=== PATIENT | female | born 1980 | race Caucasian/White ===

== ENCOUNTER → 2019-06-21 | Outpatient (CLI) | payer BC ==
--- NOTE | 2019-06-21 14:18 | Diagnostic Imaging Report ---
PROCEDURE: US Non-OB pelvis comp/trans. TECHNIQUE: Multiple realtime grayscale images were obtained of the pelvis in various projections endovaginally. Transabdominal imaging was also performed. INDICATION: Right lower quadrant pain. FINDINGS: The uterus measures 9.9 x 4.9 x 4.2 cm. Endometrium is 4 mm in thickness. No myometrial mass is detected. There are several cervical nabothian cysts. The right ovary measures 3.2 x 2.4 x 1.7 cm, and the left ovary measures 3.1 x 2.0 x 1.9 cm. There is blood flow to the ovaries. No adnexal mass or free fluid is seen. IMPRESSION: Unremarkable pelvic ultrasound. Dictated by: Dictated on workstation # [id number]
== END ==
LOC: RAD 12:58
PROVIDERS: ATTEND Obstetrics & Gynecology
DX: N83.209 Unspecified ovarian cyst, unspecified side (principal)
CPT/HCPCS: 76830; 76856

== ENCOUNTER 2019-07-20 05:55 | Outpatient (CLI) | payer BC ==
[~2019-07-20] VITALS: Ht 152 cm; Wt 79.5 kg
[2019-07-20] MEDS ORDERED: LACT1CAP74 PO (13:14)
[2019-07-20] MEDS ORDERED: NORG1TAB14 PO (13:14)
[2019-07-20] MEDS ORDERED: NAPR220C11 PO (13:14)
== END 2019-07-20 13:16 ==
LOC: PREOP 05:55
PROVIDERS: ATTEND Surgery
DX: Z01.818 Encounter for other preprocedural examination (principal)

== ENCOUNTER → 2020-01-30 | Outpatient (CLI) | payer BC, OTHER ==
[~2020-01-30] MED LIST: ACHD5005 PO; LACT1CAP74 PO; NAPR220C11 PO; NORG1TAB14 PO
--- NOTE | 2020-01-31 13:40 | Diagnostic Imaging Report ---
PROCEDURE: US Non-ob pelvis comp/trans. TECHNIQUE: Multiple Real-time grayscale images were obtained of the pelvis in various projections endovaginally. Transabdominal imaging was also performed. INDICATION: Ovarian cyst. FINDINGS: The uterus is anteverted measuring 9.1 x 4.5 x 4.6 cm. The endometrium is 3 mm in thickness. No myometrial mass is detected. The right ovary measures 2.9 x 2.1 x 2.9 cm and the left ovary measures 2.3 x 1.5 x 1.4 cm. There is blood flow to both ovaries. No adnexal mass or free fluid is detected. IMPRESSION: Unremarkable pelvic ultrasound. Dictated by: Dictated on workstation # [id number]
== END ==
LOC: RAD 12:26
PROVIDERS: ATTEND Obstetrics & Gynecology
DX: N83.209 Unspecified ovarian cyst, unspecified side (principal); Z72.0 Tobacco use
CPT/HCPCS: 76830; 76856

== ENCOUNTER → 2021-04-30 | Outpatient (CLI) | payer BC, OTHER | LOC: LABNPT 06:37 | PROVIDERS: ATTEND Emergency Medicine | DX: Z01.812 Encounter for preprocedural laboratory examination (principal); Z20.822 Contact with and (suspected) exposure to COVID-19 | CPT/HCPCS: 87635 ==

== ENCOUNTER → 2021-11-07 | Outpatient (CLI) | payer BC ==
--- NOTE | 2021-11-07 11:10 | Diagnostic Imaging Report ---
PROCEDURE: US Non-ob pelvis comp/trans. TECHNIQUE: Multiple realtime grayscale images were obtained of the pelvis in various projections endovaginally. COMPARISON: Ultrasound 01/30/2020 Transabdominal imaging was also performed. INDICATION: Pelvic pain. Unknown LMP. FINDINGS: Uterus measures 6.5 x 3.7 x 4.3 cm. Endometrial stripe is 3 mm. The right ovary is 2.7 x 2.1 x 1.8 cm. Left ovary is not identified. There is normal flow to the right ovary. There is no free fluid. There is considerable bowel gas obscuring left adnexa. IMPRESSION: 1. Uterus and right ovary are normal. Left ovary not identified with considerable adnexal gas present today Dictated by: Dictated on workstation # [id number]
--- NOTE | 2021-11-07 11:54 | Diagnostic Imaging Report ---
INDICATION: Routine screening. No prior mammograms are available for comparison. This a baseline study. 2-D and 3-D bilateral screening mammography was performed with CAD. Both breasts are heterogeneously dense, limiting the sensitivity of mammography. No mass or malignant-appearing microcalcifications are seen. Axillae are unremarkable. IMPRESSION: BI-RADS Category 1 No mammographic features suspicious for malignancy are identified. ACR BI-RADS Category 1: Negative. Result letter will be mailed to the patient. Note: At least 10% of breast cancer is not imaged by mammography. Dictated by: Dictated on workstation # [id number]
== END ==
LOC: RAD 10:00
PROVIDERS: ATTEND Obstetrics & Gynecology
DX: Z12.31 Encounter for screening mammogram for malignant neoplasm of breast (principal); R10.2 Pelvic and perineal pain
CPT/HCPCS: 76830; 76856; 77063; 77067